=== PATIENT | male | born 2000 ===

== ENCOUNTER 2019-10-18 13:44 | Inpatient (IN) | payer OTHER ==
[~2019-10-18] VITALS: Ht 180.3 cm; Wt 64.4 kg
--- NOTE | 2019-10-18 13:54 | NUR ---
PTE REFIERE ARELIS DOLOR ABDOMINAL SE LAUREN S/V YSE UBIAC EN AREA DE OBSERVACION
--- NOTE | 2019-10-18 16:02 | NUR ---
SE EDUCA A PTE SOBRE [place] MEDICO ADEBAYO REFIERE ENTENDER. SE LAUREN MUESTRAS DE LAB UTILIZANDO MEDIDAS ASEPTICAS. SE COLOCA H/L A PTE EL CUAL SE ENCUENTRA PATENTE Y WILLIAM DE EDEMA. SE ADMINISTRAN MEDS TYSHAWN ORDEN MEDICA. SE CANCELA ESTUDIO DE CT PENDIENTE A REALIZAR. PTE CONSULTADO CON CIRUGANO.
[2019-10-21] MEDS ORDERED: PERCOCET 5-3251 EACH PO (14:51)
== END 2019-10-21 15:13 | disposition home or self-care (01) | DRG 343 ==
LOC: ER 13:44 → SEC-K 17:34 → SURH 17:34
PROVIDERS: ADMIT Surgery; ATTEND Surgery
PROC: 0DTJ4ZZ Resection of Appendix, Percutaneous Endoscopic Approach (ICD-10-PCS; principal; 2019-10-19 16:00)
DX: K35.890 Other acute appendicitis without perforation or gangrene (principal); R10.31 Right lower quadrant pain